=== PATIENT | male | born 1950 | race Caucasian/White ===

== ENCOUNTER → 2017-04-09 | Outpatient (CLI) | payer OTHER, MEDICARE | LOC: FIMAGING 14:53 | PROVIDERS: ATTEND Internal Medicine Rheumatology | DX: M15.0 Primary generalized (osteo)arthritis (principal) ==

== ENCOUNTER → 2017-06-11 | Outpatient (CLI) | payer OTHER, MEDICARE | LOC: BHFA 08:30 | PROVIDERS: ATTEND Internal Medicine Cardiovascular Disease | DX: I48.91 Unspecified atrial fibrillation (principal); R00.1 Bradycardia, unspecified | CPT/HCPCS: 78452; 93017; 93225; 93226; A9500; J2785 ==

== ENCOUNTER → 2017-06-29 | Outpatient (CLI) | payer OTHER, MEDICARE | LOC: BHFA 09:15 | PROVIDERS: ATTEND Internal Medicine Cardiovascular Disease | DX: I48.91 Unspecified atrial fibrillation (principal) ==

== ENCOUNTER 2017-07-30 09:59 | Emergency (ER) | payer OTHER, MEDICARE ==
[2017-07-30] MEDS ORDERED: NS 1,000 ML IV ONE (10:13)
[2017-07-30] MEDS ORDERED: KETOROLAC 30 MG/1 ML SDV IVP ONE (10:20)
--- NOTE | 2017-07-30 10:22 | EDPHY ---
H & P Stated Complaint: L abd/flank pain Time Seen by Provider: 07/30/17 10:11 HPI/ROS: CHIEF COMPLAINT: Left flank plain HISTORY OF PRESENT ILLNESS: The patient presents to the ED with complaints of acute severe left flank pain that began at 1 o'clock this morning. It is associated with retching. He denies prior history of the symptoms. The patient has had asymptomatic hematuria noted in the past 2 weeks. He had been referred to Urology for further evaluation. The patient denies prior history of known nephrolithiasis. He does have a history of diverticulitis. The patient denies any recent medication changes. He denies additional acute complaints. REVIEW OF SYSTEMS: A comprehensive 10 point review of systems is otherwise negative aside from elements mentioned in the history of present illness. Source: Patient Exam Limitations: No limitations - Personal History Current Tetanus/Diphtheria Vaccine: Yes Current Tetanus Diphtheria and Acellular Pertussis (TDAP): Yes Tetanus Vaccine Date: 2011 - Medical/Surgical History Hx Asthma: No Hx Chronic Respiratory Disease: No Hx Diabetes: No Hx Cardiac Disease: No Hx Renal Disease: No Hx Cirrhosis: No Hx Alcoholism: No Hx HIV/AIDS: No Hx Splenectomy or Spleen Trauma: No Other PMH: intestinal blockages, ortho surgeries - Social History Smoking Status: Never smoked - Physical Exam Exam: General Appearance: Alert, uncomfortable, writhing in pain Eyes: Pupils equal and round no pallor or injection ENT, Mouth: Mucous membranes moist Respiratory: There are no retractions, lungs are clear to auscultation Cardiovascular: Regular rate and rhythm Gastrointestinal: Tenderness to palpation in the left mid quadrant and flank Neurological: 5/5 strength all 4 extremities Skin: Warm and dry, no rashes Musculoskeletal: Neck is supple nontender Extremities: symmetrical, full range of motion Constitutional: Initial Vital Signs Temperature (C) 37.1 C 07/30/17 10:03 Heart Rate 62 07/30/17 10:03 Respiratory Rate 18 07/30/17 10:03 Blood Pressure 163/118 H 07/30/17 10:03 O2 Sat (%) 95 07/30/17 10:03 O2 Delivery Mode Room Air Allergies/Adverse Reactions: No Known Allergies Allergy (Verified 07/30/17 10:01) Home Medications: Medication Instructions Recorded Lamotrigine 08/18/13 Metamucil 08/18/13 Pramipexole Dihydrochloride 08/18/13 QUEtiapine FUMARATE 08/18/13 Stool Softener 08/18/13 Trileptal 08/18/13 Valium 08/18/13 Vicodin 5-300 mg Tablet 08/18/13 Ondansetron Odt [Zofran Odt] 4 mg PO Q4PRN PRN #20 tab 07/30/17 Tamsulosin HCl [Flomax] 0.4 mg PO DAILY PRN #5 cap 07/30/17 oxyCODONE/APAP 5/325 [Percocet 1 - 2 tab PO Q6-8PRN PRN #20 tab 07/30/17 5/325 (RX)] Medical Decision Making - Diagnostics Imaging Results: Imaging Impressions Abdomen/Pelvis CT 07/30/17 10:27 Impression: 1. Mild left-sided hydronephrosis secondary to a 3 mm distal ureteral calculus. Associated left perinephric stranding is present. Correlate for clinical symptoms of pyelonephritis. 2. Sigmoid diverticulosis. Findings were communicated by telephone with Dr. Obed Bolaños at 07/30/2017 11:00 ED Course/Re-evaluation: The patient presents to the ED with acute left flank pain. The patient had an IV established. I verified a normal creatinine recently obtained an outpatient laboratory studies. The patient was taken for a stat noncontrast abdominal CT scan. The patient returned he received 30 mg of IV Toradol. CT scan does demonstrate a 3 mm distal left ureteral stone with resultant hydronephrosis. The patient received 0.4 mg of Flomax. I re-evaluated the patient at 12:10 p.m.. He complains currently of 8/10 pain. 1 mg of IV Dilaudid was ordered. Re-evaluated the patient at 1:00 p.m.. He is feeling better would like to be discharged home. He is given customary aftercare instructions and return precautions. Differential Diagnosis: Differential diagnosis considered includes nephrolithiasis, ureterolithiasis, pyelonephritis, mesenteric adenitis, aortic dissection, aortic aneurysm - Data Points Laboratory Results: Laboratory Results 07/30/17 10:15 07/30/17 07/30/17 10:15 10:15 Turbidity Cancelled Sodium Cancelled Potassium Cancelled Chloride Cancelled Carbon Dioxide Cancelled Anion Gap Cancelled BUN Cancelled Creatinine Cancelled Estimated GFR Cancelled Glucose Cancelled Calcium Cancelled Specimen Hemolysis Cancelled Urine Color YELLOW Urine Appearance HAZY Urine pH 5.0 (5.0-7.5) Ur Specific [place] 1.028 (1.002-1.030) Urine Protein NEGATIVE (NEGATIVE) Urine Ketones TRACE H (NEGATIVE) Urine Blood 3+ H (NEGATIVE) Urine Nitrate NEGATIVE (NEGATIVE) Urine Bilirubin NEGATIVE (NEGATIVE) Urine Urobilinogen NEGATIVE EU EU (0.2-1.0) Ur Leukocyte Esterase NEGATIVE (NEGATIVE) Urine RBC 10-15 /hpf H /hpf (0-3) Urine WBC 1-3 /hpf /hpf (0-3) Ur Epithelial Cells TRACE /lpf /lpf (NONE-1+) Calcium Oxalate Crystal PRESENT /hpf /hpf (NONE-1+) Urine Bacteria TRACE /hpf H /hpf (NONE SEEN) Urine Mucus TRACE /lpf /lpf (NONE-1+) Urine Glucose NEGATIVE (NEGATIVE) Medications Given: Discontinued Medications Hydromorphone HCl (Dilaudid) 1 mg IVP EDNOW ONE Stop: 07/30/17 12:09 Last Admin: 07/30/17 12:13 Dose: 1 mg Sodium Chloride (Ns) 1,000 mls @ 0 mls/hr IV EDNOW ONE; Wide Open PRN Reason: Protocol Stop: 07/30/17 10:14 Last Admin: 07/30/17 10:23 Dose: 1,000 mls Ketorolac Tromethamine (Toradol) 30 mg IVP EDNOW ONE Stop: 07/30/17 10:21 Last Admin: 07/30/17 10:23 Dose: 30 mg Tamsulosin HCl (Flomax) 0.4 mg PO EDNOW ONE Stop: 07/30/17 11:03 Last Admin: 07/30/17 11:08 Dose: 0.4 mg Departure - Departure Disposition: Home, Routine, Self-Care Clinical Impression: Kidney stone on left side Condition: Good Instructions: Renal Colic (ED) Additional Instructions: 1. Take Ibuprofen or Motrin 600 mg by mouth three times a day. 2. Percocet as needed for severe pain 3. Flomax as directed 4. Zofran as needed for nausea 5. Strain urine as directed 6. Return to the Emergency Department for intractable pain, fever or vomiting. 7. Followup with the urologist you have been referred to for unimproved symptoms. Referrals: Beata Salas MD [Medical Doctor] - As per Instructions Prescriptions: Ondansetron Odt [Zofran Odt] 4 mg PO Q4PRN PRN #20 tab PRN Reason: For Nausea oxyCODONE/APAP 5/325 [Percocet 5/325 (RX)] 1 - 2 tab PO Q6-8PRN PRN #20 tab PRN Reason: for pain Tamsulosin HCl [Flomax] 0.4 mg PO DAILY PRN #5 cap PRN Reason: for pain
[2017-07-30] MEDS ORDERED: TAMSULOSIN HCL 0.4 MG CAP PO ONE (11:02)
[2017-07-30] MEDS ORDERED: HYDROmorphONE/DILAUDID 2 MG/ML INJ IVP ONE (12:08)
[2017-07-30 13:06] VITALS: BP 170/82
== END 2017-07-30 13:12 | disposition home or self-care (01) ==
DX: N20.0 Calculus of kidney (principal); E86.9 Volume depletion, unspecified
CPT/HCPCS: 74176; 96361; 96374; 96375; 99285; J1170; J1885

== ENCOUNTER → 2018-06-27 | Outpatient (CLI) | payer OTHER, MEDICARE | LOC: BHLMT 14:45 | PROVIDERS: ATTEND Internal Medicine Cardiovascular Disease | DX: I48.91 Unspecified atrial fibrillation (principal); R01.1 Cardiac murmur, unspecified | CPT/HCPCS: 93306-PO ==